=== PATIENT | female | born 2000 | race Caucasian/White ===

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

== ENCOUNTER 2021-04-16 13:35 | Emergency (ER) | payer OTHER, MEDICAID ==
[~2021-04-16] VITALS: Ht 165.1 cm; Wt 77.1 kg
[~2021-04-16 13:35] MED LIST changes: +NOHOMEMEDICATIONS; +NORCO 5-325 TA1 EAC1 PO
[2021-04-16 14:37] VITALS: BP 133/71
== END 2021-04-16 14:40 | disposition home or self-care (01) ==
LOC: M.ERS 13:35
DX: O98.513 Other viral diseases complicating pregnancy, third trimester (principal); U07.1 COVID-19; Z3A.29 29 weeks gestation of pregnancy; Z88.1 Allergy status to other antibiotic agents; Z88.8 Allergy status to other drugs, medicaments and biological substances

== ENCOUNTER 2021-11-24 11:57 | Emergency (ER) | payer OTHER, MEDICAID ==
[~2021-11-24] VITALS: Ht 157.5 cm; Wt 58.1 kg
[2021-11-24 12:00] VITALS: BP 117/85
== END 2021-11-24 12:26 | disposition home or self-care (01) ==
LOC: M.ERS 11:57
DX: K13.79 Other lesions of oral mucosa (principal); Z88.8 Allergy status to other drugs, medicaments and biological substances